=== PATIENT | female | born 1995 | race Two or more races ===

== ENCOUNTER 2016-08-18 22:11 | Emergency (ER) | payer OTHER ==
[~2016-08-18] VITALS: Ht 160 cm; Wt 74.8 kg
[2016-08-18] MEDS ORDERED: DOXE10CA PO (22:23)
[2016-08-18] MEDS ORDERED: FLUO20CA8 PO (22:23)
[2016-08-19] MEDS ORDERED: FLAG500T PO (00:10)
[2016-08-19] MEDS ORDERED: CIPR500T89 PO (00:10)
[2016-08-19] MEDS ORDERED: TETANUS/DIPHTHERIA TOX ADSORB ADULT 0.5ML SYR/VIAL (90714) IM ONE (00:15)
[2016-08-19] MEDS ORDERED: CIPROFLOXACIN 500 MG TAB PO ONE (00:15)
[2016-08-19] MEDS ORDERED: metroNIDAZOLE (FLAGYL) 500 MG TAB PO ONE (00:15)
[2016-08-19 00:44] VITALS: BP 126/81
== END 2016-08-19 00:46 | disposition home or self-care (01) ==
LOC: M ED 23:32
DX: S61.551A Open bite of right wrist, initial encounter (principal); W55.01XA Bitten by cat, initial encounter; Y92.89 Other specified places as the place of occurrence of the external cause; Y93.K9 Activity, other involving animal care; Y99.1 Military activity; Z88.1 Allergy status to other antibiotic agents; Z88.2 Allergy status to sulfonamides; Z79.899 Other long term (current) drug therapy

== ENCOUNTER 2016-11-10 23:11 | Emergency (ER) | payer OTHER ==
[~2016-11-10] VITALS: Ht 160 cm; Wt 75.0 kg
[~2016-11-10 23:11] MED LIST: CIPR-249 PO; DOXE10CA PO; FLAG500T PO; FLUO20CA8 PO
[2016-11-10] MEDS ORDERED: LORA10TA2 (23:45)
[2016-11-10] MEDS ORDERED: FOLI1TAB4 (23:45)
--- NOTE | 2016-11-11 02:30 | REPUSA ---
CLINICAL HISTORY: Bleeding. TECHNIQUE: Transabdominal ultrasound of the pelvis was performed. FINDINGS: Uterus is normal in size measuring 7.5x3.4x4.4 cm. Anteverted uterus. Mean gestational sac diameter is 4 mm. This corresponds to an estimated gestational age of 5 weeks an d 2 days. Unremarkable right ovary measuring 2.4x1 times a 3 cm. Unremarkable left ovary measuring 3.8x2.2x2.5 cm. IMPRESSION: Intrauterine gestational sac. No pole is seen.
[2016-11-11] MEDS ORDERED: MORPHINE 4 MG/ML 1ML SYRINGE IV PRN (02:45)
[2016-11-11] MEDS ORDERED: ONDANSETRON 4MG/2ML VIAL (J2405) IV ONE (02:45)
[2016-11-11 03:00] VITALS: BP 118/72
== END 2016-11-11 03:15 | disposition home or self-care (01) ==
LOC: M ED 23:11
DX: O20.0 Threatened abortion (principal); Z79.899 Other long term (current) drug therapy; Z88.1 Allergy status to other antibiotic agents; Z88.2 Allergy status to sulfonamides; Z3A.01 Less than 8 weeks gestation of pregnancy

== ENCOUNTER → 2017-07-05 | Outpatient (REF) | LOC: M LAB REF 17:49 | DX: Z00.00 Encounter for general adult medical examination without abnormal findings (principal) ==